=== PATIENT | female | born 1950 | race Caucasian/White ===

== ENCOUNTER 2022-03-19 10:44 | Day surgery (SDC) | payer MEDICARE ==
[~2022-03-19] VITALS: Ht 154.9 cm; Wt 76.2 kg
[2022-03-19] MEDS ORDERED: diphenhydrAMINE 50 MG/ML VIAL ONE (11:47)
[2022-03-19] MEDS ORDERED: MIDAZOLAM 2 MG/2 ML VIAL ONE (11:48)
[2022-03-19] MEDS ORDERED: fentaNYL citrate 0.05 MG/ML VIAL ONE (11:48)
[2022-03-19] MEDS ORDERED: fentaNYL citrate 0.05 MG/ML VIAL IVP ONE (13:25)
[2022-03-19] MEDS ORDERED: MIDAZOLAM 2 MG/2 ML VIAL IVP ONE (13:25)
== END 2022-03-19 13:25 | disposition home or self-care (01) ==
LOC: MDS 10:44 → MMU 11:10 → MDS 13:25
PROVIDERS: ATTEND Internal Medicine Gastroenterology
DX: D50.9 Iron deficiency anemia, unspecified (principal); K63.5 Polyp of colon; K64.8 Other hemorrhoids; Z79.899 Other long term (current) drug therapy; Z86.010 Personal history of colon polyps; I10 Essential (primary) hypertension; E11.9 Type 2 diabetes mellitus without complications; K21.9 Gastro-esophageal reflux disease without esophagitis; Z79.84 Long term (current) use of oral hypoglycemic drugs; K31.7 Polyp of stomach and duodenum
CPT/HCPCS: 43239; 43251; 45385; 88305; 88312; 88313; 88342; J2250; J3010; J1200